=== PATIENT | male | born 1955 | race Caucasian/White ===

== ENCOUNTER → 2016-07-06 | Outpatient (CLI) | payer MEDICAID ==
[2014-08-29 10:22] VITALS: BP 132/107
[~2016-07-06] MED LIST: AMOXICILLIN 8751 TAB PO; ATIVAN0.5 MG PO; CARDI-OMEGA1000 MG PO; MULTIPLE VITAMI1 CAP PO; NIACIN500 MG PO; PROTEIN1 PDR PO; VITAMIN C100 M2 PO; ZOLOFT 100MG100 MG PO; ZYPREXA15 MG PO
== END ==
LOC: LAB 15:37
DX: F20.0 Paranoid schizophrenia (principal); F32.1 Major depressive disorder, single episode, moderate; R97.20 Elevated prostate specific antigen [PSA]; E78.2 Mixed hyperlipidemia

== ENCOUNTER 2017-11-15 13:24 | Emergency (ER) | payer MEDICAID ==
[~2017-11-15] VITALS: Wt 85.0 kg
[2017-11-15 14:02] LABS: EOS # 0.1 (0.04-0.40); EOS % 1.1 % (0.0-4.0); HEMATOCRIT 42.8 % (42.0-52.0); HEMOGLOBIN 14.7 g/dL (13.5-18.0); MEAN CELL VOLUME 95 fl (78-100); MEAN CORPUSCULAR HEMOGLOBIN 33 pg (27-31); MEAN CORPUSCULAR HGB CONC 34 g/dL (33-37); MONO # 0.9 (0.20-0.80); NEU # 5.3 (1.40-6.50); PLATELET COUNT 235 K/mm3 (130-400); WHITE BLOOD COUNT 7.3 K/mm3 (4.8-10.8)
[2017-11-15 14:11] LABS: ALBUMIN 3.5 g/dL (3.5-5.0); CALCIUM 8.6 mg/dL (8.4-10.2); POTASSIUM 3.9 mmol/L (3.6-5.0); TOTAL BILIRUBIN 0.5 mg/dL (0.2-1.3); TOTAL PROTEIN 6.6 g/dL (6.3-8.2)
[2017-11-15 15:50] LABS: PH-URINE 5.5 (5.0 - 8.0); URINE APPEARANCE CLEAR; URINE BILIRUBIN NEGATIVE (NEGATIVE); URINE BLOOD TRACE (NEGATIVE); URINE COLOR YELLOW; URINE GLUCOSE NEGATIVE (NEGATIVE); URINE KETONE NEGATIVE (NEGATIVE); URINE LEUKOCYTE ESTERASE NEGATIVE (NEGATIVE); URINE NITRATE NEGATIVE (NEGATIVE); URINE PROTEIN(semi-quant) NEGATIVE (NEGATIVE); URINE UROBILINOGEN NORMAL (NORMAL); URINE WBC 0-1 /hpf (0-3)
[2017-11-15 18:56] VITALS: BP 197/130
== END 2017-11-15 16:23 | disposition home or self-care (01) ==
LOC: ED 13:24
PROVIDERS: Physician Assistant
DX: S90.822A Blister (nonthermal), left foot, initial encounter (principal); S90.821A Blister (nonthermal), right foot, initial encounter; Y93.01 Activity, walking, marching and hiking; Z59.0 Homelessness; Z86.59 Personal history of other mental and behavioral disorders; Z87.891 Personal history of nicotine dependence

== ENCOUNTER 2017-11-16 14:15 | Emergency (ER) | payer MEDICAID ==
[2017-11-16 14:23] VITALS: BP 167/93
[2017-11-16 14:51] LABS: HEMOGLOBIN 14.8 g/dL (13.5-18.0); MEAN CELL VOLUME 95 fl (78-100); MEAN CORPUSCULAR HEMOGLOBIN 33 pg (27-31); MEAN CORPUSCULAR HGB CONC 34 g/dL (33-37); PLATELET COUNT 237 K/mm3 (130-400); RED BLOOD COUNT 4.52 M/mm3 (4.20-5.60); WHITE BLOOD COUNT 8.1 K/mm3 (4.8-10.8)
[2017-11-16 15:16] LABS: D-DIMER 0.35 mg/L FEU (0.15-0.50)
[2017-11-16 15:20] LABS: LYMPHOCYTE 14 % (20-51); MONOCYTE 14 % (3-10); NEUTROPHILS 70 % (42-75)
[2017-11-16 15:30] LABS: URINE APPEARANCE CLEAR; URINE COLOR YELLOW
[2017-11-16 15:31] LABS: URINE BILIRUBIN NEGATIVE (NEGATIVE); URINE BLOOD TRACE (NEGATIVE); URINE GLUCOSE NEGATIVE (NEGATIVE); URINE KETONE NEGATIVE (NEGATIVE); URINE LEUKOCYTE ESTERASE NEGATIVE (NEGATIVE); URINE NITRATE NEGATIVE (NEGATIVE); URINE PROTEIN(semi-quant) TRACE mg/dL (NEGATIVE); URINE UROBILINOGEN NORMAL (NORMAL); URINE WBC 0-1 /hpf (0-3)
[2017-11-16 15:33] LABS: ALBUMIN 3.6 g/dL (3.5-5.0); ALT/SGPT 55 U/L (21-72); AST-SGOT 70 U/L (17-59); CALCIUM 8.8 mg/dL (8.4-10.2); CARBON DIOXIDE 25 mmol/L (22-30); GLUCOSE 103 mg/dL (75-110); POTASSIUM 4.1 mmol/L (3.6-5.0); SODIUM 136 mmol/L (137-145); TOTAL BILIRUBIN 0.6 mg/dL (0.2-1.3); TOTAL PROTEIN 6.5 g/dL (6.3-8.2)
[2017-11-16 15:34] LABS: ACETAMINOPHEN < 4 ug/mL (10-30); ALCOHOL IN-HOUSE < 10 mg/dL
== END 2017-11-16 18:39 | disposition home or self-care (01) ==
LOC: ED 14:15
PROVIDERS: Nurse Practitioner Primary Care
DX: F32.9 Major depressive disorder, single episode, unspecified (principal); F20.0 Paranoid schizophrenia; Z59.0 Homelessness; M79.89 Other specified soft tissue disorders; I83.93 Asymptomatic varicose veins of bilateral lower extremities; Z91.14 Patient's other noncompliance with medication regimen

== ENCOUNTER 2017-11-29 17:15 | Emergency (ER) | payer MEDICAID | END 2017-11-29 18:18 | disposition left against medical advice (07) | LOC: ED 17:15 | DX: F25.9 Schizoaffective disorder, unspecified (principal); Z59.0 Homelessness; F17.220 Nicotine dependence, chewing tobacco, uncomplicated; Z53.21 Procedure and treatment not carried out due to patient leaving prior to being seen by health care provider ==